=== PATIENT | male | born 1975 | race Caucasian/White ===

== ENCOUNTER 2020-12-08 13:14 | Emergency (ER) | payer BC ==
[2020-12-08 16:37] VITALS: BP 173/99
== END 2020-12-08 16:06 | disposition home or self-care (01) ==
LOC: ED 13:14
DX: S06.0X9A Concussion with loss of consciousness of unspecified duration, initial encounter (principal); W01.198A Fall on same level from slipping, tripping and stumbling with subsequent striking against other object, initial encounter

== ENCOUNTER → 2021-02-01 | Outpatient (CLI) | payer BC ==
[2021-02-01 08:08] LABS: HEMATOCRIT 46.2 % (42.0-52.0); HEMOGLOBIN 15.4 g/dL (13.5-18.0); MEAN PLATELET VOLUME 9.2 fl (7.4-10.4); RED BLOOD COUNT 5.14 M/mm3 (4.20-5.60); RED CELL DISTRIBUTION WIDTH 12.1 % (11.5-14.5)
[2021-02-01 08:51] LABS: POTASSIUM 4.1 mmol/L (3.5-5.1)
[2021-02-01 08:52] LABS: ALBUMIN 4.2 g/dL (3.5-5.0)
[2021-02-01 08:54] LABS: TOTAL PROTEIN 7.4 g/dL (6.4-8.3)
[2021-02-01 08:56] LABS: TOTAL BILIRUBIN 0.7 mg/dL (0.2-1.2)
== END ==
LOC: LAB 01-31 17:10
PROVIDERS: Family Medicine
DX: I10 Essential (primary) hypertension (principal)

== ENCOUNTER → 2023-01-21 | Outpatient (CLI) | payer BC ==
[2023-01-21 17:26] LABS: CALCIUM 9.1 mg/dL (8.3-10.5)
== END ==
LOC: LAB 16:55
PROVIDERS: Family Medicine
DX: Z00.00 Encounter for general adult medical examination without abnormal findings (principal); Z23 Encounter for immunization; Z13.1 Encounter for screening for diabetes mellitus; Z12.11 Encounter for screening for malignant neoplasm of colon; I10 Essential (primary) hypertension; E78.2 Mixed hyperlipidemia; K43.9 Ventral hernia without obstruction or gangrene

== ENCOUNTER → 2023-07-23 | Outpatient (CLI) | payer BC | LOC: VAS 14:28 | DX: R60.0 Localized edema (principal) ==

== ENCOUNTER 2024-04-03 09:42 | Emergency (ER) | payer BC ==
[~2024-04-03] VITALS: Ht 182.9 cm; Wt 102.3 kg
[2024-04-03] MEDS ORDERED: LOSARTAN POTASS1 TA1 PO (09:59)
[2024-04-03] MEDS ORDERED: ATORVASTATIN CA40 MG PO (09:59)
[2024-04-03] MEDS ORDERED: BENZONATATE200 MG PO (10:55)
[2024-04-03 11:10] VITALS: BP 140/89
== END 2024-04-03 11:10 | disposition home or self-care (01) ==
LOC: ED 09:42
DX: J06.9 Acute upper respiratory infection, unspecified (principal)